=== PATIENT | female | born 1980 | race Caucasian/White ===

== ENCOUNTER 2021-06-26 21:26 | Emergency (ER) | payer SELFPAY ==
[2021-06-26 21:32] VITALS: BP 123/78; PULSE 81; TEMP 98.4; BMI 24.4
[2021-06-26] MEDS ORDERED: ACETAMINOPHEN 500 MG TABLET (FP) PO ONE (23:03)
[2021-06-26] MEDS ORDERED: ACETAMINOPHEN 325 MG TABLET (FP) ONE (23:42)
== END 2021-06-27 01:24 | disposition home or self-care (01) ==
LOC: JER 21:26
DX: N64.4 Mastodynia (principal); N61.1 Abscess of the breast and nipple
CPT/HCPCS: 76604; 99284-25